=== PATIENT | male | born 2000 | race Hispanic/Latino ===

== ENCOUNTER 2023-03-04 14:00 | Emergency (ER) | payer OTHER ==
[2023-03-04] MEDS ORDERED: Bacitracin 1 PK ONE (14:11)
[2023-03-04] MEDS ORDERED: Lidocaine 1% (PF) 30 ML VIAL ONE (14:11)
[2023-03-04] MEDS ORDERED: Lidocaine 1% w/Epinephrine 1:100K 20 ML VIAL ONE (14:15)
== END 2023-03-04 15:35 ==
LOC: NAV ERS 14:00
DX: S02.2XXA Fracture of nasal bones, initial encounter for closed fracture (principal); S01.111A Laceration without foreign body of right eyelid and periocular area, initial encounter; S01.81XA Laceration without foreign body of other part of head, initial encounter; M50.21 Other cervical disc displacement, high cervical region; W01.198A Fall on same level from slipping, tripping and stumbling with subsequent striking against other object, initial encounter; Y93.02 Activity, running; Y92.148 Other place in prison as the place of occurrence of the external cause
CPT/HCPCS: 12013; 70450; 72125; J2001